=== PATIENT | male | born 1935 | race Caucasian/White ===

== ENCOUNTER → 2017-08-16 | Outpatient (CLI) | payer MEDICARE ==
[2017-08-16 10:43] LABS: Blood Urea Nitrogen 18 mg/dL (9-20); Non-African American GFR(MDRD) >60 (>60 ml/min/1.73 sqM)
--- NOTE | 2017-08-16 11:53 | CT ---
EXAMINATION TYPE: CT angio chest DATE OF EXAM: 08/16/2017 COMPARISON: 07/18/2016 HISTORY: Ascending aortic aneurysm CT DLP: 806 mGycm. Automated Exposure Control for Dose Reduction was Utilized. CONTRAST: CTA scan of the thorax is performed without and with IV Contrast, patient injected with 100 mL of Omn ipaque 350, pulmonary embolism protocol. 3-D MIP Images are created on CT scanner and reviewed. FINDINGS: LUNGS: The lungs are grossly clear without focal consolidation. Calcified granuloma is seen on image 37. Interlobar fissure grade minimal subsegmental dependent bibasilar atelectasis is noted. No pulmon lindsay mass. Mild biapical pleural parenchymal scarring. There is mild background centrilobular emphysem atous change. No pneumothorax. There is no pleural effusion or pneumothorax seen. The tracheobronchi al tree is patent. MEDIASTINUM: The unenhanced images demonstrate no evidence of intramural hematoma. There is slight di lation of the sinotubular junction as it measures 4.0 cm. The ascending thoracic aorta measures up to 4.6 cm, stable from the prior exam where it measured 4.7 cm difference is accountable on obliquity a nd slice selection. There is no evidence of thoracic aortic aneurysmal dissection. The great vessels have a normal configuration anatomic branch pattern. No central pulmonary embolus. No enlargement of the main pulmonary artery. Moderate three-vessel coronary artery calcifications are seen, a marker fo r coronary artery disease. There is satisfactory enhancement of the pulmonary artery and its branches , there is no CT evidence for pulmonary embolism. There are no greater than 1 cm hilar or mediastina l lymph nodes. No cardiomegaly or pericardial effusion is seen. OTHER: No additional significant abnormality is seen. Numerous calculi are seen within the gallbladd er body layering dependently. Diffuse moderate pancreatic atrophy is present. There is a small hiatal hernia noted. Levoscoliotic curvature, partially visualized of the lower thoracolumbar spine and tho racolumbar junction. 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 IMPRESSION: No interval enlargement of the ascending thoracic aortic aneurysm measuring up to 4.6 cm in comparison to the exam of 07/18/2016. No evidence of intramural hematoma or dissection.
== END | disposition home or self-care (01) ==
LOC: RADCTMAIN 09:46
PROVIDERS: ATTEND Internal Medicine Interventional Cardiology
DX: I71.2 Thoracic aortic aneurysm, without rupture (principal)
CPT/HCPCS: 82565; 84520; 71275; 36415; Q9967